=== PATIENT | female | born 1940 | race African-American/Black ===

== ENCOUNTER 2017-03-24 10:09 | Inpatient (IN) | payer MEDICARE ==
[2017-03-24 11:13] LABS: Hematocrit 35.6 % (30.3-42.9); Hemoglobin 11.8 gm/dl (10.1-14.3); Mean Corpuscular HGB Conc 33 % (30-34); Mean Corpuscular Hemoglobin 36 pg (28-32); Mean Corpuscular Volume 108 fl (79-97); Red Blood Count 3.31 M/mm3 (3.65-5.03); Red Cell Distribution Width 15.3 % (13.2-15.2)
[2017-03-24 11:14] LABS: Albumin 4.1 g/dL (3.9-5); Albumin/Globulin Ratio 1.4 %; Bilirubin,Total 0.3 mg/dL (0.1-1.2); Calcium 8.7 mg/dL (8.4-10.2); Chloride 94.5 mmol/L (98-107); Magnesium 2.3 mg/dL (1.7-2.3); Potassium 4.2 mmol/L (3.6-5.0); Total Protein 7.1 g/dL (6.3-8.2)
[2017-03-24 11:17] LABS: Platelet Count 62 K/mm3 (140-440)
[2017-03-24 12:23] LABS: Anisocytosis 1+; Basophils % (Manual) 0 % (0.0-1.8); Blastocytes % (Manual) 0 %; Diff Status Complete; Eosinophils % (Manual) 0 % (0.0-4.3); Ovalocytes Few; Platelet Estimate Consistent w Auto; Tear Drop Cells Few
[2017-03-24] MEDS ORDERED: NACL 0.9% 1000 ML 1,000 ML IV ONE (12:41)
--- NOTE | 2017-03-24 12:54 | XRay Report ---
AP CHEST: HISTORY: Difficulty in breathing AP view of the chest demonstrates a normal mediastinal and cardiac contour with clear lungs and normal bony and soft tissue structures. IMPRESSION: Unremarkable AP chest.
[2017-03-24] MEDS ORDERED: ROCEPHIN/NS 1 GM/50 ML 1 GM/50 ML BAG IV ONE (12:57)
[2017-03-24 13:02] LABS: Urine Drugs of Abuse Note Disclamer
[2017-03-24 13:27] LABS: Bacteria,Urine 1+ /HPF (Negative); Bilirubin,Urine NEG (Negative); Blood,Urine NEG (Negative); Ketones,Urine NEG (Negative); Leukocyte Esterase,Urine NEG (Negative); Mucus,Urine FEW /HPF; Nitrite,Urine NEG (Negative); Urobilinogen,Urine < 2.0 mg/dL (<2.0)
[2017-03-24] MEDS ORDERED: cefTRIAXone 1 GM in NACL 0.9% 20 ML IV ONE (13:30)
[2017-03-24 13:33] LABS: INR 0.89 (0.87-1.13)
[2017-03-24 13:34] LABS: Partial Thromboplastin Time 29.6 Sec. (24.2-36.6)
[2017-03-24 13:38] LABS: Alanine Aminotransferase 18 units/L (7-56); Albumin 3.9 g/dL (3.9-5); Albumin/Globulin Ratio 1.2 %; Alkaline Phosphatase 72 units/L (35-129); Creatine Kinase 71 units/L (30-135); Total Protein 7.1 g/dL (6.3-8.2)
[2017-03-24 13:44] LABS: Bilirubin,Direct < 0.2 mg/dL (0-0.2)
--- NOTE | 2017-03-24 14:18 | Cat Scan Report ---
CT HEAD WITHOUT CONTRAST: HISTORY: Altered mental status, thrombocytopenia. TECHNIQUE: Sequential 2.5mm CT images. COMPARISON: 12/01/14. FINDINGS: Cerebral Parenchyma: Within normal limits. Cerebellum: Within normal limits. Brainstem: Within normal limits. Ventricles: Normal. Sella: Normal. Extra-axial spaces: Normal. Basal Cisterns: Normal. Intracranial Hemorrhage: None. Midline Shift: None. Calvarium: Normal. Sinuses: Normal. Mastoid Air Cells: Normal. Visualized Orbits: Normal. IMPRESSION: Cranial CT scan within normal limits.
--- NOTE | 2017-03-24 18:57 | Emergency Department Report ---
ED General Adult HPI - General Chief complaint: Upper Respiratory Infection Stated complaint: SICK CALL Time Seen by Provider: 03/24/17 12:05 Source: EMS Mode of arrival: Stretcher Limitations: Language Barrier - History of Present Illness Initial comments: Patient herself is not able to provide any historical information. She is attended by her granddaughter who is not a great historian either. The granddaughter states that the patient was "at work" today when she started feeling illness. She had a plethora of symptoms to include headache chest pain weakness some breathing difficulty cough. More or less her review of systems is positive except for vomiting and abdominal pain. She did not complain of any urinary symptoms either when the daughter was translating for me. However her history is very vague. Granddaughter tells me she takes Motrin only. She does not see a medical physician. She was here a year or 2 ago and I see that her CBC shows a pancytopenia although not as severe as today. -: hour(s) Quality: other (not complaining of any pain on arrival) - Related Data Previous Rx's Medication Instructions Recorded Last Taken Type Sulfamethoxazole/Trimethoprim 1 each PO BID #14 tablet 12/01/14 Unknown Rx [Bactrim DS TAB] Allergies Allergy/AdvReac Type Severity Reaction Status Date / Time No Known Allergies Allergy Unverified 12/01/14 14:40 ED Review of Systems ROS: Stated complaint: SICK CALL Other details as noted in HPI Comment: Unobtainable due to pts medical conditions ED Past Medical Hx - Past Medical History Previous Medical History?: No - Surgical History Past Surgical History?: No - Social History Smoking Status: Unknown if ever smoked Substance Use Type: None - Medications Home Medications: Home Medications Medication Instructions Recorded Confirmed Last Taken Type Sulfamethoxazole/Trimethoprim 1 each PO BID #14 tablet 12/01/14 Unknown Rx [Bactrim DS TAB] ED Physical Exam - General Limitations: Language Barrier General appearance: in no apparent distress, lethargic - Head Head exam: Present: atraumatic, normocephalic - Eye Eye exam: Present: normal appearance, PERRL, EOMI. Absent: scleral icterus - ENT ENT exam: Present: mucous membranes dry - Neck Neck exam: Present: normal inspection. Absent: tenderness, meningismus - Respiratory Respiratory exam: Present: normal lung sounds bilaterally. Absent: respiratory distress - Cardiovascular Cardiovascular Exam: Present: regular rate, normal rhythm. Absent: systolic murmur, diastolic murmur, rubs, gallop - GI/Abdominal GI/Abdominal exam: Present: soft, normal bowel sounds. Absent: distended, tenderness, guarding, rebound, rigid - Extremities Exam Extremities exam: Present: normal inspection - Back Exam Back exam: Present: normal inspection - Neurological Exam Neurological exam: Present: altered (lethargic), CN II-XII intact. Absent: motor sensory deficit - Psychiatric Psychiatric exam: Present: normal mood, flat affect - Skin Skin exam: Present: warm, dry, intact, normal color. Absent: rash ED Course Vital Signs 03/24/17 03/24/17 10:12 12:06 Temperature 97.9 F Pulse Rate 62 Respiratory 18 20 Rate Blood Pressure 112/61 O2 Sat by Pulse 100 100 Oximetry - Reevaluation(s) Reevaluation #1: Patient was given IV fluids. My initial antibiotic choice was ceftriaxone. It looks like her urinalysis does have slight pyuria and bacteriuria. I would be uncertain if this is a source infection however. Further antibiotic coverage per hospitalist staff. The patient has been admitted. 03/24/17 19:01 ED Medical Decision Making - Lab Data Result diagrams: 03/24/17 10:59 03/24/17 10:36 Laboratory Results - last 24 hr 03/24/17 03/24/17 03/24/17 10:36 10:36 10:36 WBC RBC Hgb Hct MCV MCH MCHC RDW Plt Count Add Manual Diff Total Counted Seg Neuts % (Manual) Band Neutrophils % Lymphocytes % (Manual) Reactive Lymphs % (Man) Monocytes % (Manual) Eosinophils % (Manual) Basophils % (Manual) Metamyelocytes % Myelocytes % Promyelocytes % Blast Cells % Nucleated RBC % Seg Neutrophils # Man Band Neutrophils # Lymphocytes # (Manual) Abs React Lymphs (Man) Monocytes # (Manual) Eosinophils # (Manual) Basophils # (Manual) Metamyelocytes # Myelocytes # Promyelocytes # Blast Cells # WBC Morphology Hypersegmented Neuts Hyposegmented Neuts Hypogranular Neuts Smudge Cells Toxic Granulation Toxic Vacuolation Dohle Bodies Pelger-Huet Anomaly Gurpreet Rods Platelet Estimate Clumped Platelets Plt Clumps, EDTA Large Platelets Giant Platelets Platelet Satelliting Plt Morphology Comment RBC Morphology Dimorphic RBCs Polychromasia Hypochromasia Poikilocytosis Anisocytosis Microcytosis Macrocytosis Spherocytes Pappenheimer Bodies Sickle Cells Target Cells Tear Drop Cells Ovalocytes Helmet Cells [place] Bodies [place] Rings [place] Cells Bite Cells Crenated Cell Elliptocytes Acanthocytes (Spur) Rouleaux Hemoglobin C Crystals Schistocytes Malaria parasites Moses Bodies Hem Pathologist Commnt PT INR APTT Sodium 134 L Potassium 4.2 Chloride 94.5 L Carbon Dioxide 24 Anion Gap 20 BUN 32 H Creatinine 1.3 H Estimated GFR 40 BUN/Creatinine Ratio 25 Glucose 163 H Lactic Acid 1.20 Calcium 8.7 Magnesium 2.30 Total Bilirubin 0.30 Direct Bilirubin AST 36 ALT 18 Alkaline Phosphatase 71 Ammonia Total Creatine Kinase CK-MB (CK-2) CK-MB (CK-2) Rel Index Troponin T NT-Pro-B Natriuret Pep Total Protein 7.1 Albumin 4.1 Albumin/Globulin Ratio 1.4 TSH 0.787 Urine Color Urine Turbidity Urine pH Ur Specific [place] Urine Protein Urine Glucose (UA) Urine Ketones Urine Blood Urine Nitrite Urine Bilirubin Urine Urobilinogen Ur Leukocyte Esterase Urine WBC (Auto) Urine RBC (Auto) U Epithel Cells (Auto) Urine Bacteria (Auto) Urine Mucus Salicylates Urine Opiates Screen Urine Methadone Screen Acetaminophen Ur Barbiturates Screen Ur Phencyclidine Scrn Ur Amphetamines Screen U Benzodiazepines Scrn Urine Cocaine Screen U Marijuana (THC) Screen Drugs of Abuse Note Plasma/Serum Alcohol Blood Type Antibody Screen 03/24/17 03/24/17 03/24/17 10:36 10:36 10:36 WBC RBC Hgb Hct MCV MCH MCHC RDW Plt Count Add Manual Diff Total Counted Seg Neuts % (Manual) Band Neutrophils % Lymphocytes % (Manual) Reactive Lymphs % (Man) Monocytes % (Manual) Eosinophils % (Manual) Basophils % (Manual) Metamyelocytes % Myelocytes % Promyelocytes % Blast Cells % Nucleated RBC % Seg Neutrophils # Man Band Neutrophils # Lymphocytes # (Manual) Abs React Lymphs (Man) Monocytes # (Manual) Eosinophils # (Manual) Basophils # (Manual) Metamyelocytes # Myelocytes # Promyelocytes # Blast Cells # WBC Morphology Hypersegmented Neuts Hyposegmented Neuts Hypogranular Neuts Smudge Cells Toxic Granulation Toxic Vacuolation Dohle Bodies Pelger-Huet Anomaly Gurpreet Rods Platelet Estimate Clumped Platelets Plt Clumps, EDTA Large Platelets Giant Platelets Platelet Satelliting Plt Morphology Comment RBC Morphology Dimorphic RBCs Polychromasia Hypochromasia Poikilocytosis Anisocytosis Microcytosis Macrocytosis Spherocytes Pappenheimer Bodies Sickle Cells Target Cells Tear Drop Cells Ovalocytes Helmet Cells [place] Bodies [place] Rings Mauricio Cells Bite Cells Crenated Cell Elliptocytes Acanthocytes (Spur) Rouleaux Hemoglobin C Crystals Schistocytes Malaria parasites Moses Bodies Hem Pathologist Commnt PT INR APTT Sodium Potassium Chloride Carbon Dioxide Anion Gap BUN Creatinine Estimated GFR BUN/Creatinine Ratio Glucose Lactic Acid Calcium Magnesium Total Bilirubin Direct Bilirubin AST ALT Alkaline Phosphatase Ammonia Total Creatine Kinase CK-MB (CK-2) CK-MB (CK-2) Rel Index Troponin T NT-Pro-B Natriuret Pep Total Protein Albumin Albumin/Globulin Ratio TSH Urine Color Urine Turbidity Urine pH Ur Specific [place] Urine Protein Urine Glucose (UA) Urine Ketones Urine Blood Urine Nitrite Urine Bilirubin Urine Urobilinogen Ur Leukocyte Esterase Urine WBC (Auto) Urine RBC (Auto) U Epithel Cells (Auto) Urine Bacteria (Auto) Urine Mucus Salicylates 1.5 L Urine Opiates Screen Urine Methadone Screen Acetaminophen < 15.0 Ur Barbiturates Screen Ur Phencyclidine Scrn Ur Amphetamines Screen U Benzodiazepines Scrn Urine Cocaine Screen U Marijuana (THC) Screen Drugs of Abuse Note Plasma/Serum Alcohol < 0.01 Blood Type Antibody Screen 03/24/17 03/24/17 03/24/17 10:59 12:50 12:50 WBC 2.0 L RBC 3.31 L Hgb 11.8 Hct 35.6 MCV 108 H MCH 36 H MCHC 33 RDW 15.3 H Plt Count 62 L Add Manual Diff Complete Total Counted 100 Seg Neuts % (Manual) 52.0 Band Neutrophils % 17.0 Lymphocytes % (Manual) 22.0 Reactive Lymphs % (Man) 5.0 Monocytes % (Manual) 4.0 Eosinophils % (Manual) 0 Basophils % (Manual) 0 Metamyelocytes % 0 Myelocytes % 0 Promyelocytes % 0 Blast Cells % 0 Nucleated RBC % Not Reportable Seg Neutrophils # Man 1.0 L Band Neutrophils # 0.3 Lymphocytes # (Manual) 0.4 L Abs React Lymphs (Man) 0.1 Monocytes # (Manual) 0.1 Eosinophils # (Manual) 0.0 Basophils # (Manual) 0.0 Metamyelocytes # 0.0 Myelocytes # 0.0 Promyelocytes # 0.0 Blast Cells # 0.0 WBC Morphology Not Reportable Hypersegmented Neuts Not Reportable Hyposegmented Neuts Not Reportable Hypogranular Neuts Not Reportable Smudge Cells Not Reportable Toxic Granulation Not Reportable Toxic Vacuolation Not Reportable Dohle Bodies Not Reportable Pelger-Huet Anomaly Not Reportable Gurpreet Rods Not Reportable Platelet Estimate Consistent w auto Clumped Platelets Not Reportable Plt Clumps, EDTA Not Reportable Large Platelets Not Reportable Giant Platelets Not Reportable Platelet Satelliting Not Reportable Plt Morphology Comment Not Reportable RBC Morphology Not Reportable Dimorphic RBCs Not Reportable Polychromasia Not Reportable Hypochromasia Not Reportable Poikilocytosis Not Reportable Anisocytosis 1+ Microcytosis Not Reportable Macrocytosis Not Reportable Spherocytes Not Reportable Pappenheimer Bodies Not Reportable Sickle Cells Not Reportable Target Cells Not Reportable Tear Drop Cells Few Ovalocytes Few Helmet Cells Not Reportable [place] Bodies Not Reportable [place] Rings Not Reportable [place] Cells Not Reportable Bite Cells Not Reportable Crenated Cell Not Reportable Elliptocytes Not Reportable Acanthocytes (Spur) Not Reportable Rouleaux Not Reportable Hemoglobin C Crystals Not Reportable Schistocytes Not Reportable Malaria parasites Not Reportable Moses Bodies Not Reportable Hem Pathologist Commnt No PT 12.5 INR 0.89 APTT 29.6 Sodium Potassium Chloride Carbon Dioxide Anion Gap BUN Creatinine Estimated GFR BUN/Creatinine Ratio Glucose Lactic Acid Calcium Magnesium 2.40 H Total Bilirubin 0.20 Direct Bilirubin < 0.2 AST 32 ALT 18 Alkaline Phosphatase 72 Ammonia Total Creatine Kinase 71 CK-MB (CK-2) 2.0 CK-MB (CK-2) Rel Index 2.8 Troponin T < 0.010 NT-Pro-B Natriuret Pep 47.77 Total Protein 7.1 Albumin 3.9 Albumin/Globulin Ratio 1.2 TSH Urine Color Urine Turbidity Urine pH Ur Specific [place] Urine Protein Urine Glucose (UA) Urine Ketones Urine Blood Urine Nitrite Urine Bilirubin Urine Urobilinogen Ur Leukocyte Esterase Urine WBC (Auto) Urine RBC (Auto) U Epithel Cells (Auto) Urine Bacteria (Auto) Urine Mucus Salicylates Urine Opiates Screen Urine Methadone Screen Acetaminophen Ur Barbiturates Screen Ur Phencyclidine Scrn Ur Amphetamines Screen U Benzodiazepines Scrn Urine Cocaine Screen U Marijuana (THC) Screen Drugs of Abuse Note Plasma/Serum Alcohol Blood Type Antibody Screen 03/24/17 03/24/17 03/24/17 12:50 12:50 12:50 WBC RBC Hgb Hct MCV MCH MCHC RDW Plt Count Add Manual Diff Total Counted Seg Neuts % (Manual) Band Neutrophils % Lymphocytes % (Manual) Reactive Lymphs % (Man) Monocytes % (Manual) Eosinophils % (Manual) Basophils % (Manual) Metamyelocytes % Myelocytes % Promyelocytes % Blast Cells % Nucleated RBC % Seg Neutrophils # Man Band Neutrophils # Lymphocytes # (Manual) Abs React Lymphs (Man) Monocytes # (Manual) Eosinophils # (Manual) Basophils # (Manual) Metamyelocytes # Myelocytes # Promyelocytes # Blast Cells # WBC Morphology Hypersegmented Neuts Hyposegmented Neuts Hypogranular Neuts Smudge Cells Toxic Granulation Toxic Vacuolation Dohle Bodies Pelger-Huet Anomaly Gurpreet Rods Platelet Estimate Clumped Platelets Plt Clumps, EDTA Large Platelets Giant Platelets Platelet Satelliting Plt Morphology Comment RBC Morphology Dimorphic RBCs Polychromasia Hypochromasia Poikilocytosis Anisocytosis Microcytosis Macrocytosis Spherocytes Pappenheimer Bodies Sickle Cells Target Cells Tear Drop Cells Ovalocytes Helmet Cells [place] Bodies [place] Rings Mauricio Cells Bite Cells Crenated Cell Elliptocytes Acanthocytes (Spur) Rouleaux Hemoglobin C Crystals Schistocytes Malaria parasites Moses Bodies Hem Pathologist Commnt PT INR APTT Sodium Potassium Chloride Carbon Dioxide Anion Gap BUN Creatinine Estimated GFR BUN/Creatinine Ratio Glucose Lactic Acid 1.60 Calcium Magnesium Total Bilirubin Direct Bilirubin AST ALT Alkaline Phosphatase Ammonia 32.0 Total Creatine Kinase CK-MB (CK-2) CK-MB (CK-2) Rel Index Troponin T NT-Pro-B Natriuret Pep Total Protein Albumin Albumin/Globulin Ratio TSH Urine Color Urine Turbidity Urine pH Ur Specific [place] Urine Protein Urine Glucose (UA) Urine Ketones Urine Blood Urine Nitrite Urine Bilirubin Urine Urobilinogen Ur Leukocyte Esterase Urine WBC (Auto) Urine RBC (Auto) U Epithel Cells (Auto) Urine Bacteria (Auto) Urine Mucus Salicylates Urine Opiates Screen Urine Methadone Screen Acetaminophen Ur Barbiturates Screen Ur Phencyclidine Scrn Ur Amphetamines Screen U Benzodiazepines Scrn Urine Cocaine Screen U Marijuana (THC) Screen Drugs of Abuse Note Plasma/Serum Alcohol Blood Type B POSITIVE Antibody Screen Negative 03/24/17 03/24/17 12:52 12:52 WBC RBC Hgb Hct MCV MCH MCHC RDW Plt Count Add Manual Diff Total Counted Seg Neuts % (Manual) Band Neutrophils % Lymphocytes % (Manual) Reactive Lymphs % (Man) Monocytes % (Manual) Eosinophils % (Manual) Basophils % (Manual) Metamyelocytes % Myelocytes % Promyelocytes % Blast Cells % Nucleated RBC % Seg Neutrophils # Man Band Neutrophils # Lymphocytes # (Manual) Abs React Lymphs (Man) Monocytes # (Manual) Eosinophils # (Manual) Basophils # (Manual) Metamyelocytes # Myelocytes # Promyelocytes # Blast Cells # WBC Morphology Hypersegmented Neuts Hyposegmented Neuts Hypogranular Neuts Smudge Cells Toxic Granulation Toxic Vacuolation Dohle Bodies Pelger-Huet Anomaly Gurpreet Rods Platelet Estimate Clumped Platelets Plt Clumps, EDTA Large Platelets Giant Platelets Platelet Satelliting Plt Morphology Comment RBC Morphology Dimorphic RBCs Polychromasia Hypochromasia Poikilocytosis Anisocytosis Microcytosis Macrocytosis Spherocytes Pappenheimer Bodies Sickle Cells Target Cells Tear Drop Cells Ovalocytes Helmet Cells [place] Bodies [place] Rings Mauricio Cells Bite Cells Crenated Cell Elliptocytes Acanthocytes (Spur) Rouleaux Hemoglobin C Crystals Schistocytes Malaria parasites Moses Bodies Hem Pathologist Commnt PT INR APTT Sodium Potassium Chloride Carbon Dioxide Anion Gap BUN Creatinine Estimated GFR BUN/Creatinine Ratio Glucose Lactic Acid Calcium Magnesium Total Bilirubin Direct Bilirubin AST ALT Alkaline Phosphatase Ammonia Total Creatine Kinase CK-MB (CK-2) CK-MB (CK-2) Rel Index Troponin T NT-Pro-B Natriuret Pep Total Protein Albumin Albumin/Globulin Ratio TSH Urine Color [place] Urine Turbidity Clear Urine pH 5.0 Ur Specific [place] 1.027 Urine Protein 30 mg/dl Urine Glucose (UA) Neg Urine Ketones Neg Urine Blood Neg Urine Nitrite Neg Urine Bilirubin Neg Urine Urobilinogen < 2.0 Ur Leukocyte Esterase Neg Urine WBC (Auto) 7.0 H Urine RBC (Auto) 4.0 U Epithel Cells (Auto) 2.0 Urine Bacteria (Auto) 1+ Urine Mucus Few Salicylates Urine Opiates Screen Presumptive negative Urine Methadone Screen Presumptive negative Acetaminophen Ur Barbiturates Screen Presumptive negative Ur Phencyclidine Scrn Presumptive negative Ur Amphetamines Screen Presumptive negative U Benzodiazepines Scrn Presumptive negative Urine Cocaine Screen Presumptive negative U Marijuana (THC) Screen Presumptive negative Drugs of Abuse Note Disclamer Plasma/Serum Alcohol Blood Type Antibody Screen - EKG Data -: EKG Interpreted by Me EKG shows normal: sinus rhythm, axis, intervals, QRS complexes, ST-T waves Rate: bradycardia - EKG Data Interpretation: no acute changes, other (EKG in the field and here in the emergency department does not demonstrate any evidence of acute ischemia) Critical care attestation.: If time is entered above; I have spent that time in minutes in the direct care of this critically ill patient, excluding procedure time. ED Disposition Clinical Impression: Prerenal azotemia, Volume depletion, Pancytopenia, Thrombocytopenia, Bradycardia Neutropenia Qualifiers: Neutropenia type: unspecified Qualified Code(s): D70.9 - Neutropenia, unspecified Altered mental status Qualifiers: Altered mental status type: somnolence Qualified Code(s): R40.0 - Somnolence Disposition: DC-09 OP ADMIT IP TO THIS HOSP Is pt being admited?: Yes Does the pt Need Aspirin: No (contraindicated secondary to thrombocytopenia) Condition: Stable Referrals: PRIMARY CARE, [Primary Care Provider] - 3-5 Days Time of Disposition: 14:00
--- NOTE | 2017-03-24 19:49 | History and Physical Report ---
History of Present Illness Chief complaint: She feels sick History of present illness: 77 YO Female with No PMH presents to ED for evaluation. Pt unable to provide detailed history. Pt granddaughter at bedside who provides limited history through translation. per granddaughter, the patient was in her usual state of health, and after she arrived at work she began to feel "sick". Pt experienced a sudden onset of generalized weakness, headache, as well as chest pain. Pain was substernal, nonradiating, associated with shortness of breath and coughing, nonradiating, not worsened with exertion or relieved with rest. No reports of fever, chills, syncope, trauma, BRBPR, recent ill contacts, falls , unintentional weight loss, night sweats, prolonged travel/immobility, individual/family history of DVT/PE, skin rash, hematuria, or productive cough. Pt seen and evaluated inED and found to have symptoms consistent with ACS. Past History Past Medical History: No medical history, other (reviewed) Past Surgical History: No surgical history, Other (reviewed) Social history: single, lives with family. denies: smoking, alcohol abuse, prescription drug abuse Family history: no significant family history (reviewed) Medications and Allergies Allergies Allergy/AdvReac Type Severity Reaction Status Date / Time No Known Allergies Allergy Unverified 12/01/14 14:40 Home Medications Medication Instructions Recorded Confirmed Last Taken Type No Known Home Medications [No 03/24/17 03/24/17 Unknown History Reported Home Medications] Active Meds: Active Medications Sodium Chloride (Nacl 0.9% 1000 Ml) 1,000 mls @ 125 mls/hr IV ONCE ONE Stop: 03/24/17 20:40 Last Admin: 03/24/17 14:10 Dose: 125 mls/hr Review of Systems ROS unobtainable: due to mental status Exam - Constitutional Vitals: Temp Pulse Resp BP Pulse Ox 97.9 F 62 14 123/57 99 03/24/17 10:12 03/24/17 18:46 03/24/17 18:46 03/24/17 16:30 03/24/17 18:46 General appearance: Present: mild distress, cachectic - EENT Eyes: Present: PERRL ENT: hearing intact, clear oral mucosa - Neck Neck: Present: supple, normal ROM - Respiratory Respiratory effort: normal Respiratory: bilateral: CTA - Cardiovascular Heart Sounds: Present: S1 & S2. Absent: rub, click - Extremities Extremities: pulses symmetrical, No edema Peripheral Pulses: within normal limits - Abdominal General gastrointestinal: Present: soft, non-tender, non-distended, normal bowel sounds Female genitourinary: Present: normal - Integumentary Integumentary: Present: clear, warm, dry - Musculoskeletal Musculoskeletal: gait normal, strength equal bilaterally - Psychiatric Psychiatric: no intact judgment & insight - Neurologic Neurologic: CNII-XII intact, moves all extremities Results - Labs CBC & Chem 7: 03/24/17 20:42 03/24/17 20:42 Labs: Abnormal lab results 03/24/17 03/24/17 03/24/17 Range/Units 10:36 10:36 10:59 WBC 2.0 L (4.5-11.0) K/mm3 RBC 3.31 L (3.65-5.03) M/mm3 MCV 108 H (79-97) fl MCH 36 H (28-32) pg RDW 15.3 H (13.2-15.2) % Plt Count 62 L (140-440) K/mm3 Seg Neutrophils # Man 1.0 L (1.8-7.7) K/mm3 Lymphocytes # (Manual) 0.4 L (1.2-5.4) K/mm3 Sodium 134 L (137-145) mmol/L Chloride 94.5 L (98-107) mmol/L BUN 32 H (7-17) mg/dL Creatinine 1.3 H (0.7-1.2) mg/dL Glucose 163 H (65-100) mg/dL Magnesium (1.7-2.3) mg/dL Urine WBC (Auto) (0.0-6.0) /HPF Salicylates 1.5 L (2.8-20.0) mg/dL 03/24/17 03/24/17 Range/Units 12:50 12:52 WBC (4.5-11.0) K/mm3 RBC (3.65-5.03) M/mm3 MCV (79-97) fl MCH (28-32) pg RDW (13.2-15.2) % Plt Count (140-440) K/mm3 Seg Neutrophils # Man (1.8-7.7) K/mm3 Lymphocytes # (Manual) (1.2-5.4) K/mm3 Sodium (137-145) mmol/L Chloride (98-107) mmol/L BUN (7-17) mg/dL Creatinine (0.7-1.2) mg/dL Glucose (65-100) mg/dL Magnesium 2.40 H (1.7-2.3) mg/dL Urine WBC (Auto) 7.0 H (0.0-6.0) /HPF Salicylates (2.8-20.0) mg/dL Assessment and Plan - Patient Problems (1) ACS (acute coronary syndrome) Current Visit: Yes Status: Acute Plan to address problem: Chest Pain protocol: Serial cardiac enzymes, ekg, telemetry, cardiology consulted, echo, stress test, supplemental oxygen, morphine, nitro tabs, aspirin , (2) Hyponatremia syndrome Current Visit: Yes Status: Acute Plan to address problem: IVF resuscitation, repeat bmp (3) ARF (acute renal failure) Current Visit: Yes Status: Acute Plan to address problem: Monitor uop q shift, IVF resuscitation, repeat bmp to reevaluate serum creatnine (4) DVT prophylaxis Current Visit: Yes Status: Acute
[2017-03-24] MEDS ORDERED: BABY ASPIRIN PO STA (20:31)
[2017-03-24] MEDS ORDERED: PROVENTIL IH PRN (20:31)
[2017-03-24] MEDS ORDERED: SODIUM CHLORIDE FLUSH SYRINGE 10 ML IV PRN (20:31)
[2017-03-24] MEDS ORDERED: MORPHINE IV PRN (20:31)
[2017-03-24] MEDS ORDERED: NITROSTAT SL PRN (20:31)
[2017-03-24] MEDS ORDERED: ZOFRAN IV PRN (20:31)
[2017-03-24] MEDS: TYLENOL PO PRN (20:50)
[2017-03-24 20:57] LABS: Hematocrit 31.9 % (30.3-42.9); Mean Corpuscular HGB Conc 34 % (30-34); Mean Corpuscular Hemoglobin 36 pg (28-32); Mean Corpuscular Volume 106 fl (79-97); Red Blood Count 3.01 M/mm3 (3.65-5.03)
[2017-03-24 21:00] LABS: Platelet Count 60 K/mm3 (140-440); White Blood Count 1.6 K/mm3 (4.5-11.0)
[2017-03-24 21:20] LABS: Anion Gap 19 mmol/L; BUN/Creatinine Ratio 28; Blood Urea Nitrogen 22 mg/dL (7-17); Calcium 7.9 mg/dL (8.4-10.2); Carbon Dioxide 23 mmol/L (22-30); Chloride 104.5 mmol/L (98-107); Cholesterol 150 mg/dL (50-199); Glucose 95 mg/dL (65-100); HDL Cholesterol 63 mg/dL (40-59); LDL Cholesterol,Direct 67 mg/dL (50-130); Sodium 142 mmol/L (137-145); Triglycerides 104 mg/dL (2-149)
[2017-03-24 21:42] LABS: Basophils % (Manual) 0 % (0.0-1.8); Blastocytes % (Manual) 0 %; Eosinophils % (Manual) 0 % (0.0-4.3)
[2017-03-24 21:43] LABS: Anisocytosis 1+; Ovalocytes Few; Platelet Estimate Appears Decreased; Tear Drop Cells Few
[2017-03-24 21:44] LABS: Diff Status Complete
[2017-03-24] MEDS ORDERED: ATIVAN ONE (22:22)
[2017-03-24] MEDS ORDERED: ATIVAN IV ONE (22:23)
[2017-03-24] MEDS ORDERED: KEPPRA 1,000 MG/NS 0.75% 100ML 1,000 MG/100 ML BAG IV ONE (22:29)
--- NOTE | 2017-03-24 22:32 | Event Note ---
Patient had seizure episode, witnessed by family. Gave Ativan iv. Start keppra iv, fluids. CT head done today was unremarkable.
[2017-03-25] MEDS ORDERED: NACL 0.9% 1000 ML 1,000 ML IV ONE (04:14)
[2017-03-25] MEDS ORDERED: D50W (25GM) Vial IV ONE (05:00)
[2017-03-25] MEDS: D5/0.45NS 1,000 ML IV SCH (06:52)
--- NOTE | 2017-03-25 10:00 | Consultation ---
History of Present Illness Consult date: 03/25/17 Consult reason: other History of present illness: 77 YO woman with unclear medical history who presented to ED with syncope, generalized fatigue, malaise, and "generally not feeling well." She is not able to provide history and history was obtained from her family and medical records. She normally works in a warehouse and had been at work yesterday when she started feeling unwell with generalized weakness, headache, and subsequently had brief episode of syncope. She did not have any palpitations, chest pain or unusual dyspnea. OK has been ruled out with serial negative enzymes. She was noted to have severe pancytopenia and she had witnessed seizure overnight. She has no prior h /o seizures and continues to have ongoing headaches. ECG reveals NSR and is otherwise unremarkable. Past History Past Medical History: No medical history, other (reviewed) Past Surgical History: No surgical history, Other (reviewed) Social history: single, lives with family. denies: smoking, alcohol abuse, prescription drug abuse Family history: no significant family history (reviewed) Medications and Allergies Allergies Allergy/AdvReac Type Severity Reaction Status Date / Time No Known Allergies Allergy Unverified 12/01/14 14:40 Home Medications Medication Instructions Recorded Confirmed Last Taken Type No Known Home Medications [No 03/24/17 03/24/17 Unknown History Reported Home Medications] Active Meds: Active Medications Acetaminophen (Tylenol) 650 mg PO Q4H PRN PRN Reason: Pain MILD(1-3)/Fever >100.5/HASSAN Last Admin: 03/24/17 20:50 Dose: 650 mg Albuterol (Proventil) 2.5 mg IH Q4HRT PRN PRN Reason: Shortness Of Breath Dextrose/Sodium Chloride (D5/0.45ns) 1,000 mls @ 75 mls/hr IV DIRECT MARK Last Admin: 03/25/17 06:52 Dose: 75 mls/hr Influenza Virus Vaccine Quadrival (Fluarix Quad [id number](36 Mos+) 0.5 ml IM .ONCE ONE Stop: 03/25/17 12:01 Morphine Sulfate (Morphine) 2 mg IV Q4H PRN PRN Reason: Pain, Moderate (4-6) Nitroglycerin (Nitrostat) 0.4 mg SL Q5M PRN PRN Reason: Chest Pain Ondansetron HCl (Zofran) 4 mg IV Q8H PRN PRN Reason: N/V unrelieved by Reglan Sodium Chloride (Sodium Chloride Flush Syringe 10 Ml) 10 ml IV PRN PRN PRN Reason: LINE FLUSH Review of Systems All systems: negative (per hpi - otherwise unable to obtain) Physical Examination Vital Signs Temp Pulse Resp BP Pulse Ox 97.9 F 62 18 112/61 100 03/24/17 10:12 03/24/17 10:12 03/24/17 10:12 03/24/17 10:12 03/24/17 10:12 Results 03/24/17 20:42 03/24/17 20:42 Cardiac Enzymes 03/24/17 03/24/17 Range/Units 10:36 12:50 AST 36 32 (5-40) units/L CK-MB (CK-2) 2.0 (0.0-4.0) ng/mL Coagulation 03/24/17 Range/Units 12:50 PT 12.5 (12.2-14.9) Sec. INR 0.89 (0.87-1.13) APTT 29.6 (24.2-36.6) Sec. Lipids 03/24/17 Range/Units 20:42 Triglycerides 104 (2-149) mg/dL Cholesterol 150 (50-199) mg/dL HDL Cholesterol 63 H (40-59) mg/dL Cholesterol/HDL Ratio 2.38 % CBC 03/24/17 03/24/17 Range/Units 10:59 20:42 WBC 2.0 L 1.6 L* (4.5-11.0) K/mm3 RBC 3.31 L 3.01 L (3.65-5.03) M/mm3 Hgb 11.8 11.0 (10.1-14.3) gm/dl Hct 35.6 31.9 (30.3-42.9) % Plt Count 62 L 60 L (140-440) K/mm3 Comprehensive Metabolic Panel 03/24/17 03/24/17 03/24/17 Range/Units 10:36 12:50 20:42 Sodium 134 L 142 D (137-145) mmol/L Potassium 4.2 4.0 (3.6-5.0) mmol/L Chloride 94.5 L 104.5 (98-107) mmol/L Carbon Dioxide 24 23 (22-30) mmol/L BUN 32 H 22 H (7-17) mg/dL Creatinine 1.3 H 0.8 (0.7-1.2) mg/dL Glucose 163 H 95 (65-100) mg/dL Calcium 8.7 7.9 L (8.4-10.2) mg/dL Direct Bilirubin < 0.2 (0-0.2) mg/dL AST 36 32 (5-40) units/L ALT 18 18 (7-56) units/L Alkaline Phosphatase 71 72 (35-129) units/L Total Protein 7.1 7.1 (6.3-8.2) g/dL Albumin 4.1 3.9 (3.9-5) g/dL Assessment and Plan Syncope, Generallized weakness, fatigue Witnessed Seizure Headache Pancytopenia Recommend: No utility to cardiac stress testing at this point - will cancel Neurology and Hematology evaluation Check Echocardiogram
[2017-03-25] MEDS: TYLENOL PO PRN ×2 (10:39→23:24)
--- NOTE | 2017-03-25 10:52 | Progress Note ---
Assessment and Plan Assessment and plan: --Witnessed seizure; probably new onset Seizure precautions, antiepileptic medications, neurology consultation, supportive care, EEG as needed --Acute coronary syndrome; unlikely, serial cardiac enzymes negative, EKG no acute ST changes, closely monitor --Acute renal failure; vasomotor nephropathy, resolved Gentle hydration, closely monitor renal function, avoid nephrotoxic medications --Hyponatremia; replacement therapy, closely monitor sodium levels --Neutropenia; unknown etiology, try to get a complete history from the family --Thrombocytopenia; unknown etiology, obtain medical history from the family, consult hematology as needed --Elevated D dimers; negative PE --DVT prophylaxis; no pharmacologic anticoagulation in view of thrombocytopenia Use SCDs --Full code Closely monitor the patient and adjust management as needed History Interval history: Patient seen and examined medical records reviewed Last night events noted, had a witnessed seizure, on seizure precautions No new episodes Sleeping easily awakens minimally communicative Hospitalist Physical - Constitutional Vitals: Temp Pulse Resp BP Pulse Ox 97.7 F 72 18 105/42 96 03/25/17 04:07 03/25/17 06:57 03/25/17 04:01 03/25/17 06:44 03/25/17 06:44 General appearance: Present: mild distress, cachectic, disheveled - EENT Eyes: Present: PERRL, EOM intact - Neck Neck: Present: supple, normal ROM - Respiratory Respiratory effort: normal Respiratory: bilateral: diminished, negative: rales, rhonchi, wheezing - Cardiovascular Rhythm: regular Heart Sounds: Present: S1 & S2 - Extremities Extremities: no ischemia, No edema - Abdominal General gastrointestinal: soft, non-tender, non-distended, normal bowel sounds - Integumentary Integumentary: Present: clear, warm - Psychiatric Psychiatric: other (minimally communicative) - Neurologic Neurologic: other (minimally communicative) Results - Labs CBC & Chem 7: 03/24/17 20:42 03/24/17 20:42 Labs: Laboratory Last Values WBC 1.6 K/mm3 (4.5-11.0) L* 03/24/17 20:42 RBC 3.01 M/mm3 (3.65-5.03) L 03/24/17 20:42 Hgb 11.0 gm/dl (10.1-14.3) 03/24/17 20:42 Hct 31.9 % (30.3-42.9) 03/24/17 20:42 MCV 106 fl (79-97) H 03/24/17 20:42 MCH 36 pg (28-32) H 03/24/17 20:42 MCHC 34 % (30-34) 03/24/17 20:42 RDW 15.0 % (13.2-15.2) 03/24/17 20:42 Plt Count 60 K/mm3 (140-440) L 03/24/17 20:42 Add Manual Diff Complete 03/24/17 20:42 Total Counted 100 03/24/17 20:42 Seg Neuts % (Manual) 58.0 % (40.0-70.0) 03/24/17 20:42 Band Neutrophils % 0 % 03/24/17 20:42 Lymphocytes % (Manual) 31.0 % (13.4-35.0) 03/24/17 20:42 Reactive Lymphs % (Man) 0 % 03/24/17 20:42 Monocytes % (Manual) 11.0 % (0.0-7.3) H 03/24/17 20:42 Eosinophils % (Manual) 0 % (0.0-4.3) 03/24/17 20:42 Basophils % (Manual) 0 % (0.0-1.8) 03/24/17 20:42 Metamyelocytes % 0 % 03/24/17 20:42 Myelocytes % 0 % 03/24/17 20:42 Promyelocytes % 0 % 03/24/17 20:42 Blast Cells % 0 % 03/24/17 20:42 Nucleated RBC % Not Reportable 03/24/17 20:42 Seg Neutrophils # Man 0.9 K/mm3 (1.8-7.7) L 03/24/17 20:42 Band Neutrophils # 0.0 K/mm3 03/24/17 20:42 Lymphocytes # (Manual) 0.5 K/mm3 (1.2-5.4) L 03/24/17 20:42 Abs React Lymphs (Man) 0.0 K/mm3 03/24/17 20:42 Monocytes # (Manual) 0.2 K/mm3 (0.0-0.8) 03/24/17 20:42 Eosinophils # (Manual) 0.0 K/mm3 (0.0-0.4) 03/24/17 20:42 Basophils # (Manual) 0.0 K/mm3 (0.0-0.1) 03/24/17 20:42 Metamyelocytes # 0.0 K/mm3 03/24/17 20:42 Myelocytes # 0.0 K/mm3 03/24/17 20:42 Promyelocytes # 0.0 K/mm3 03/24/17 20:42 Blast Cells # 0.0 K/mm3 03/24/17 20:42 WBC Morphology Not Reportable 03/24/17 20:42 Hypersegmented Neuts Not Reportable 03/24/17 20:42 Hyposegmented Neuts Not Reportable 03/24/17 20:42 Hypogranular Neuts Not Reportable 03/24/17 20:42 Smudge Cells Not Reportable 03/24/17 20:42 Toxic Granulation Not Reportable 03/24/17 20:42 Toxic Vacuolation Not Reportable 03/24/17 20:42 Dohle Bodies Not Reportable 03/24/17 20:42 Pelger-Huet Anomaly Not Reportable 03/24/17 20:42 Gurpreet Rods Not Reportable 03/24/17 20:42 Platelet Estimate Appears decreased 03/24/17 20:42 Clumped Platelets Not Reportable 03/24/17 20:42 Plt Clumps, EDTA Not Reportable 03/24/17 20:42 Large Platelets Not Reportable 03/24/17 20:42 Giant Platelets Not Reportable 03/24/17 20:42 Platelet Satelliting Not Reportable 03/24/17 20:42 Plt Morphology Comment Not Reportable 03/24/17 20:42 RBC Morphology Not Reportable 03/24/17 20:42 Dimorphic RBCs Not Reportable 03/24/17 20:42 Polychromasia Not Reportable 03/24/17 20:42 Hypochromasia Not Reportable 03/24/17 20:42 Poikilocytosis Not Reportable 03/24/17 20:42 Anisocytosis 1+ 03/24/17 20:42 Microcytosis Not Reportable 03/24/17 20:42 Macrocytosis Not Reportable 03/24/17 20:42 Spherocytes Not Reportable 03/24/17 20:42 Pappenheimer Bodies Not Reportable 03/24/17 20:42 Sickle Cells Not Reportable 03/24/17 20:42 Target Cells Not Reportable 03/24/17 20:42 Tear Drop Cells Few 03/24/17 20:42 Ovalocytes Few 03/24/17 20:42 Helmet Cells Not Reportable 03/24/17 20:42 [place] Bodies Not Reportable 03/24/17 20:42 [place] Rings Not Reportable 03/24/17 20:42 Mauricio Cells Not Reportable 03/24/17 20:42 Bite Cells Not Reportable 03/24/17 20:42 Crenated Cell Not Reportable 03/24/17 20:42 Elliptocytes Not Reportable 03/24/17 20:42 Acanthocytes (Spur) Not Reportable 03/24/17 20:42 Rouleaux Not Reportable 03/24/17 20:42 Hemoglobin C Crystals Not Reportable 03/24/17 20:42 Schistocytes Not Reportable 03/24/17 20:42 Malaria parasites Not Reportable 03/24/17 20:42 Moses Bodies Not Reportable 03/24/17 20:42 Hem Pathologist Commnt No 03/24/17 20:42 PT 12.5 Sec. (12.2-14.9) 03/24/17 12:50 INR 0.89 (0.87-1.13) 03/24/17 12:50 APTT 29.6 Sec. (24.2-36.6) 03/24/17 12:50 D-Dimer 422.07 ng/mlDDU (0-234) H 03/24/17 20:42 Sodium 142 mmol/L (137-145) D 03/24/17 20:42 Potassium 4.0 mmol/L (3.6-5.0) 03/24/17 20:42 Chloride 104.5 mmol/L (98-107) 03/24/17 20:42 Carbon Dioxide 23 mmol/L (22-30) 03/24/17 20:42 Anion Gap 19 mmol/L 03/24/17 20:42 BUN 22 mg/dL (7-17) H 03/24/17 20:42 Creatinine 0.8 mg/dL (0.7-1.2) 03/24/17 20:42 Estimated GFR > 60 ml/min 03/24/17 20:42 BUN/Creatinine Ratio 28 % 03/24/17 20:42 Glucose 95 mg/dL (65-100) 03/24/17 20:42 POC Glucose 144 (70-105) H 03/25/17 06:46 Lactic Acid 1.60 mmol/L (0.7-2.0) 03/24/17 12:50 Calcium 7.9 mg/dL (8.4-10.2) L 03/24/17 20:42 Magnesium 2.40 mg/dL (1.7-2.3) H 03/24/17 12:50 Total Bilirubin 0.20 mg/dL (0.1-1.2) 03/24/17 12:50 Direct Bilirubin < 0.2 mg/dL (0-0.2) 03/24/17 12:50 AST 32 units/L (5-40) 03/24/17 12:50 ALT 18 units/L (7-56) 03/24/17 12:50 Alkaline Phosphatase 72 units/L (35-129) 03/24/17 12:50 Ammonia 32.0 umol/L (25-60) 03/24/17 12:50 Total Creatine Kinase 71 units/L (30-135) 03/24/17 12:50 CK-MB (CK-2) 2.0 ng/mL (0.0-4.0) 03/24/17 12:50 CK-MB (CK-2) Rel Index 2.8 (0-4) 03/24/17 12:50 Troponin T < 0.010 ng/mL (0.00-0.029) 03/25/17 02:31 NT-Pro-B Natriuret Pep 47.77 pg/mL (0-900) 03/24/17 12:50 Total Protein 7.1 g/dL (6.3-8.2) 03/24/17 12:50 Albumin 3.9 g/dL (3.9-5) 03/24/17 12:50 Albumin/Globulin Ratio 1.2 % 03/24/17 12:50 Triglycerides 104 mg/dL (2-149) 03/24/17 20:42 Cholesterol 150 mg/dL (50-199) 03/24/17 20:42 LDL Cholesterol Direct 67 mg/dL (50-130) 03/24/17 20:42 HDL Cholesterol 63 mg/dL (40-59) H 03/24/17 20:42 Cholesterol/HDL Ratio 2.38 % 03/24/17 20:42 TSH 0.787 mlU/mL (0.270-4.200) 03/24/17 10:36 Urine Color Amanda (Yellow) 03/24/17 12:52 Urine Turbidity Clear (Clear) 03/24/17 12:52 Urine pH 5.0 (5.0-7.0) 03/24/17 12:52 Ur Specific Cyrus 1.027 (1.003-1.030) 03/24/17 12:52 Urine Protein 30 mg/dl mg/dL (Negative) 03/24/17 12:52 Urine Glucose (UA) Neg mg/dL (Negative) 03/24/17 12:52 Urine Ketones Neg mg/dL (Negative) 03/24/17 12:52 Urine Blood Neg (Negative) 03/24/17 12:52 Urine Nitrite Neg (Negative) 03/24/17 12:52 Urine Bilirubin Neg (Negative) 03/24/17 12:52 Urine Urobilinogen < 2.0 mg/dL (<2.0) 03/24/17 12:52 Ur Leukocyte Esterase Neg (Negative) 03/24/17 12:52 Urine WBC (Auto) 7.0 /HPF (0.0-6.0) H 03/24/17 12:52 Urine RBC (Auto) 4.0 /HPF (0.0-6.0) 03/24/17 12:52 U Epithel Cells (Auto) 2.0 /HPF (0-13.0) 03/24/17 12:52 Urine Bacteria (Auto) 1+ /HPF (Negative) 03/24/17 12:52 Urine Mucus Few /HPF 03/24/17 12:52 Salicylates 1.5 mg/dL (2.8-20.0) L 03/24/17 10:36 Urine Opiates Screen Presumptive negative 03/24/17 12:52 Urine Methadone Screen Presumptive negative 03/24/17 12:52 Acetaminophen < 15.0 ug/mL (10.0-30.0) 03/24/17 10:36 Ur Barbiturates Screen Presumptive negative 03/24/17 12:52 Ur Phencyclidine Scrn Presumptive negative 03/24/17 12:52 Ur Amphetamines Screen Presumptive negative 03/24/17 12:52 U Benzodiazepines Scrn Presumptive negative 03/24/17 12:52 Urine Cocaine Screen Presumptive negative 03/24/17 12:52 U Marijuana (THC) Screen Presumptive negative 03/24/17 12:52 Drugs of Abuse Note Disclamer 03/24/17 12:52 Plasma/Serum Alcohol < 0.01 gm% (0-0.07) 03/24/17 10:36 Blood Type B POSITIVE 03/24/17 12:50 Antibody Screen Negative 03/24/17 12:50
[2017-03-25] MEDS ORDERED: NACL ONE (11:01)
--- NOTE | 2017-03-25 11:52 | Cat Scan Report ---
CT ANGIO CHEST WITH CONTRAST: 03/25/17 10:49:00 CLINICAL: Chest pain and elevated d-dimers. TECHNIQUE: PE protocol with volumetric acquisition and 1.25 mm scan reconstructions after the uneventful intravenous injection of 100 cc Omnipaque 350. Consent was obtained prior to the administration of contrast. FINDINGS: Good opacification of the pulmonary arteries and no pulmonary artery thrombus identified. Normal heart and aorta. Normal lungs and mediastinum. Normal trachea and esophagus. Mild right thyroid enlargement with a benign calcification. The upper abdomen is unremarkable. The bones and soft tissues are normal. IMPRESSION: Negative study. No pulmonary embolus. No CHF or pneumonia.
[2017-03-25] MEDS ORDERED: Fluarix Quad 2017-2018(36 MOS+ IM ONE (12:00)
[2017-03-25] MEDS: ROBITUSSIN PO PRN (23:10)
--- NOTE | 2017-03-26 00:57 | Consultation ---
HISTORY OF PRESENT ILLNESS: This is a 77-year-old female that is admitted to [facility] for further evaluation of a syncopal episode. By history, her granddaughter tells me that she came in with altered mental status and was confused and passed out at her work. 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 Granddaughter could, however, not make any specific statements about her symptoms other than she started having difficulty in breathing, coughing, and then had chest pain with headaches. She did not speak Uz[place], so therefore the daughter translated. She had been taking Motrin before this. She does not see a doctor. She had a prior history of probably taking no medications except occasional [id number] Motrin. When she was assessed, she was treated with IV fluids and ceftriaxone. Urinalysis shows she had pyuria, bacteriuria, and respiratory rate was 18 and she had a platelet count of 62,000, which was thrombocytopenia. After being initially evaluated, she remained somnolent and she was thought to have had a seizure. Since admission, she is being evaluated for neutropenia and thrombocytopenia with a white blood count of 2000 with the calculated neutrophil count being about 50% indicating that she has overall neutropenia as well. PHYSICAL EXAMINATION: The patient is lethargic, complains of a headache, has full ocular movements, but the neck is supple. The ocular movements are full. Dry Cleaning Manager strength is equal. Motor tone is normal. No tremors or asterixis. The patient has a supple neck. She moves all extremities. No recurrent seizure activity is present. IMPRESSION: Onset of headache with urinary tract infection. White blood count showing leukopenia, but also quite seriously neutropenia with a white count around 1000, which is a serious issue. In addition, she has thrombocytopenia with a platelet count of 62,000. She may have been compromised based on a bone marrow failure issue or this may be simply an issue related to this infection. We would recommend treating him with anticonvulsants. I would plan to review her further history from other family members. The granddaughter at present has only a limited understanding of her prior history. I did review over her CT scan of the head. Sinuses are unremarkable. The brain has a relatively normal appearance for her stated age and there is only a very slight degree of atrophy present somewhat more so than would be expected, but certainly this does not look pathological and there is no evidence of any focal stroke or other focal lesions. There is a slight calcification in the globus pallidus but this is expected at her age. I do not see any other abnormalities that are worth commenting on. JOB# [id number] CHRISTA/LISA
[2017-03-26 05:23] LABS: Hematocrit 29.1 % (30.3-42.9); Hemoglobin 9.9 gm/dl (10.1-14.3); Mean Corpuscular HGB Conc 34 % (30-34); Mean Corpuscular Hemoglobin 36 pg (28-32); Mean Corpuscular Volume 107 fl (79-97); Red Blood Count 2.72 M/mm3 (3.65-5.03); Red Cell Distribution Width 14.8 % (13.2-15.2)
[2017-03-26] MEDS: D5/0.45NS 1,000 ML IV SCH ×2 (05:25→10:01)
[2017-03-26 05:27] LABS: White Blood Count 1.6 K/mm3 (4.5-11.0)
[2017-03-26 05:28] LABS: Platelet Count 49 K/mm3 (140-440)
[2017-03-26 05:54] LABS: Alanine Aminotransferase 12 units/L (7-56); Albumin 3.2 g/dL (3.9-5); Albumin/Globulin Ratio 1.3 %; Alkaline Phosphatase 52 units/L (35-129); Anion Gap 15 mmol/L; BUN/Creatinine Ratio 13; Blood Urea Nitrogen 9 mg/dL (7-17); Calcium 7.6 mg/dL (8.4-10.2); Carbon Dioxide 24 mmol/L (22-30); Chloride 106.4 mmol/L (98-107); Glucose 102 mg/dL (65-100); Potassium 3.5 mmol/L (3.6-5.0); Sodium 142 mmol/L (137-145); Total Protein 5.6 g/dL (6.3-8.2)
[2017-03-26 05:59] LABS: Bilirubin,Direct < 0.2 mg/dL (0-0.2)
[2017-03-26 06:30] LABS: Anisocytosis 1+; Basophils % (Manual) 0 % (0.0-1.8); Blastocytes % (Manual) 0 %; Diff Status Complete; Ovalocytes Few; Platelet Estimate Appears Decreased; Tear Drop Cells Few
[2017-03-26] MEDS: ROBITUSSIN PO PRN (10:01)
--- NOTE | 2017-03-26 11:03 | Progress Note ---
Assessment and Plan Syncope, Generallized weakness, fatigue Witnessed Seizure Headache Pancytopenia Recommend: Neurology and Hematology evaluation Check Echocardiogram Subjective Date of service: 03/26/17 Interval history: No acute events. No further seizures. Objective Vital Signs Temp Pulse Resp Resp BP Pulse Ox 03/26/17 08:07 93 03/26/17 07:56 20 03/26/17 03:46 98.5 F 60 18 103/47 95 03/26/17 00:13 98.4 F 67 20 109/49 96 03/25/17 23:24 20 03/25/17 23:00 20 03/25/17 22:15 20 03/25/17 21:13 64 03/25/17 19:43 98.3 F 67 20 105/46 99 03/25/17 16:01 98.3 F 55 L 18 92/36 94 - Physical Examination General: Appears Well HEENT: Positive: PERRL Neck: Positive: neck supple Cardiac: Positive: Reg Rate and Rhythm. Negative: Systolic Murmur Lungs: Positive: clear to auscultation, Normal Breath Sounds Abdomen: Positive: Soft, Active Bowel Sounds Extremities: Absent: edema - Labs and Meds Cardiac Enzymes 03/26/17 Range/Units 04:21 AST 27 (5-40) units/L CBC 03/26/17 Range/Units 04:21 WBC 1.6 L* (4.5-11.0) K/mm3 RBC 2.72 L (3.65-5.03) M/mm3 Hgb 9.9 L (10.1-14.3) gm/dl Hct 29.1 L (30.3-42.9) % Plt Count 49 L (140-440) K/mm3 Comprehensive Metabolic Panel 03/26/17 Range/Units 04:21 Sodium 142 (137-145) mmol/L Potassium 3.5 L (3.6-5.0) mmol/L Chloride 106.4 (98-107) mmol/L Carbon Dioxide 24 (22-30) mmol/L BUN 9 (7-17) mg/dL Creatinine 0.7 (0.7-1.2) mg/dL Glucose 102 H (65-100) mg/dL Calcium 7.6 L (8.4-10.2) mg/dL Direct Bilirubin < 0.2 (0-0.2) mg/dL Indirect Bilirubin 0.0 mg/dL AST 27 (5-40) units/L ALT 12 (7-56) units/L Alkaline Phosphatase 52 (35-129) units/L Total Protein 5.6 L D (6.3-8.2) g/dL Albumin 3.2 L (3.9-5) g/dL
--- NOTE | 2017-03-26 13:15 | Hem/Onc Consultation ---
History of Present Illness - Reason for Consult Consult date: 03/26/17 - History of Present Illness Full consult dictated. We will check hepatitis profile. We will check B12 and folate levels. We will follow CBC carefully. May need to give empiric anti-biotics if leucopenia persists. If starts bleeding, may need platelet transfusion but currently we will follow. May need bone marrow biopsy if above mentioned tests unremarkable Past History Past Medical History: No medical history, other (reviewed) Past Surgical History: No surgical history, Other (reviewed) Social history: single, lives with family. denies: smoking, alcohol abuse, prescription drug abuse Family history: no significant family history (reviewed) Medications and Allergies Allergies Allergy/AdvReac Type Severity Reaction Status Date / Time No Known Allergies Allergy Unverified 12/01/14 14:40 Home Medications Medication Instructions Recorded Confirmed Last Taken Type No Known Home Medications [No 03/24/17 03/24/17 Unknown History Reported Home Medications] Active Meds: Active Medications Acetaminophen (Tylenol) 650 mg PO Q4H PRN PRN Reason: Pain MILD(1-3)/Fever >100.5/HASSAN Last Admin: 03/25/17 23:24 Dose: 650 mg Albuterol (Proventil) 2.5 mg IH Q4HRT PRN PRN Reason: Shortness Of Breath Guaifenesin (Robitussin) 200 mg PO Q4H PRN PRN Reason: Cough Last Admin: 03/26/17 10:01 Dose: 200 mg Dextrose/Sodium Chloride (D5/0.45ns) 1,000 mls @ 75 mls/hr IV DIRECT MARK Last Admin: 03/26/17 10:01 Dose: 75 mls/hr Morphine Sulfate (Morphine) 2 mg IV Q4H PRN PRN Reason: Pain, Moderate (4-6) Nitroglycerin (Nitrostat) 0.4 mg SL Q5M PRN PRN Reason: Chest Pain Ondansetron HCl (Zofran) 4 mg IV Q8H PRN PRN Reason: N/V unrelieved by Reglan Sodium Chloride (Sodium Chloride Flush Syringe 10 Ml) 10 ml IV PRN PRN PRN Reason: LINE FLUSH Exam - Constitutional Vitals: Last Vital Signs Temp 98.1 F 03/26/17 11:47 Pulse 61 03/26/17 11:48 Resp 16 03/26/17 11:47 BP 125/50 03/26/17 11:47 Pulse Ox 95 03/26/17 11:48 Results - Labs lab Results: Laboratory Results - last 24 hr 03/26/17 03/26/17 04:21 04:21 WBC 1.6 L* RBC 2.72 L Hgb 9.9 L Hct 29.1 L MCV 107 H MCH 36 H MCHC 34 RDW 14.8 Plt Count 49 L [place] % (Auto) [employer] Att[employer] Add Manual Diff Complete Total Counted 100 Seg Neutrophils % [employer] Att[employer] Seg Neuts % (Manual) 42.0 Band Neutrophils % 12.0 Lymphocytes % (Manual) 37.0 H Reactive Lymphs % (Man) 3.0 Monocytes % (Manual) 5.0 Eosinophils % (Manual) 1.0 Basophils % (Manual) 0 Metamyelocytes % 0 Myelocytes % 0 Promyelocytes % 0 Blast Cells % 0 Nucleated RBC % Not Reportable Seg Neutrophils # Man 0.7 L Band Neutrophils # 0.2 Lymphocytes # (Manual) 0.6 L Abs React Lymphs (Man) 0.0 Monocytes # (Manual) 0.1 Eosinophils # (Manual) 0.0 Basophils # (Manual) 0.0 Metamyelocytes # 0.0 Myelocytes # 0.0 Promyelocytes # 0.0 Blast Cells # 0.0 WBC Morphology Not Reportable Hypersegmented Neuts Not Reportable Hyposegmented Neuts Not Reportable Hypogranular Neuts Not Reportable Smudge Cells Not Reportable Toxic Granulation Not Reportable Toxic Vacuolation Not Reportable Dohle Bodies Not Reportable Pelger-Huet Anomaly Not Reportable Gurpreet Rods Not Reportable Platelet Estimate Appears decreased Clumped Platelets Not Reportable Plt Clumps, EDTA Not Reportable Large Platelets Not Reportable Giant Platelets Not Reportable Platelet Satelliting Not Reportable Plt Morphology Comment Not Reportable RBC Morphology Not Reportable Dimorphic RBCs Not Reportable Polychromasia Not Reportable Hypochromasia Not Reportable Poikilocytosis Not Reportable Anisocytosis 1+ Microcytosis Not Reportable Macrocytosis Not Reportable Spherocytes Not Reportable Pappenheimer Bodies Not Reportable Sickle Cells Not Reportable Target Cells Not Reportable Tear Drop Cells Few Ovalocytes Few Helmet Cells Not Reportable [place] Bodies Not Reportable [place] Rings Not Reportable [place] Cells Not Reportable Bite Cells Not Reportable Crenated Cell Not Reportable Elliptocytes Not Reportable Acanthocytes (Spur) Not Reportable Rouleaux Not Reportable Hemoglobin C Crystals Not Reportable Schistocytes Not Reportable Malaria parasites Not Reportable Moses Bodies Not Reportable Hem Pathologist Commnt No Sodium 142 Potassium 3.5 L Chloride 106.4 Carbon Dioxide 24 Anion Gap 15 BUN 9 Creatinine 0.7 Estimated GFR > 60 BUN/Creatinine Ratio 13 Glucose 102 H Calcium 7.6 L Total Bilirubin 0.20 Direct Bilirubin < 0.2 Indirect Bilirubin 0.0 AST 27 ALT 12 Alkaline Phosphatase 52 Total Protein 5.6 L D Albumin 3.2 L Albumin/Globulin Ratio 1.3
--- NOTE | 2017-03-26 14:50 | Progress Note ---
Assessment and Plan Assessment and Plan Assessment and plan: --Witnessed seizure; probably new onset Seizure precautions, antiepileptic medications, neurology consultation, supportive care, EEG as needed --Acute coronary syndrome; unlikely, serial cardiac enzymes negative, EKG no acute ST changes, closely monitor --Acute renal failure; vasomotor nephropathy, resolved Gentle hydration, closely monitor renal function, avoid nephrotoxic medications --Hyponatremia; replacement therapy, closely monitor sodium levels --Neutropenia; unknown etiology, try to get a complete history from the family --Thrombocytopenia; unknown etiology, obtain medical history from the family, consult hematology as needed --Elevated D dimers; negative PE --DVT prophylaxis; no pharmacologic anticoagulation in view of thrombocytopenia Use SCDs --Full code Closely monitor the patient and adjust management as needed Subjective Date of service: 03/26/17 Objective - Constitutional Vitals: Vital Signs - 12hr 03/26/17 03/26/17 03/26/17 03:46 07:53 07:56 Temperature 98.5 F 97.7 F Pulse Rate 60 62 Respiratory 18 16 Rate Respiratory 20 Rate [Back] Blood Pressure 103/47 97/46 O2 Sat by Pulse 95 96 Oximetry 03/26/17 03/26/17 03/26/17 08:07 10:00 11:47 Temperature 98.1 F Pulse Rate 56 L 60 Respiratory 16 Rate Respiratory Rate [Back] Blood Pressure 125/50 O2 Sat by Pulse 93 95 Oximetry 03/26/17 11:48 Temperature Pulse Rate 61 Respiratory Rate Respiratory Rate [Back] Blood Pressure O2 Sat by Pulse 95 Oximetry General appearance: Present: no acute distress, well-nourished - EENT Eyes: PERRL, EOM intact ENT: hearing intact, clear oral mucosa Ears: bilateral: normal - Neck Neck: supple, normal ROM - Respiratory Respiratory effort: normal Respiratory: bilateral: CTA - Breasts Breasts: normal - Cardiovascular Rhythm: regular Heart Sounds: Present: S1 & S2. Absent: gallop, rub Extremities: pulses intact, No edema, normal color, Full ROM - Gastrointestinal General gastrointestinal: Present: soft, non-tender, non-distended, normal bowel sounds - Genitourinary Female genitourinary: normal - Integumentary Integumentary: clear, warm, dry - Musculoskeletal Musculoskeletal: 1, strength equal bilaterally - Neurologic Neurologic: moves all extremities - Psychiatric Psychiatric: memory intact, appropriate mood/affect, intact judgment & insight - Labs CBC & Chem 7: 03/26/17 04:21 03/26/17 04:21 Labs: Abnormal lab results 03/26/17 03/26/17 Range/Units 04:21 04:21 WBC 1.6 L* (4.5-11.0) K/mm3 RBC 2.72 L (3.65-5.03) M/mm3 Hgb 9.9 L (10.1-14.3) gm/dl Hct 29.1 L (30.3-42.9) % MCV 107 H (79-97) fl MCH 36 H (28-32) pg Plt Count 49 L (140-440) K/mm3 Lymphocytes % (Manual) 37.0 H (13.4-35.0) % Seg Neutrophils # Man 0.7 L (1.8-7.7) K/mm3 Lymphocytes # (Manual) 0.6 L (1.2-5.4) K/mm3 Potassium 3.5 L (3.6-5.0) mmol/L Glucose 102 H (65-100) mg/dL Calcium 7.6 L (8.4-10.2) mg/dL Total Protein 5.6 L D (6.3-8.2) g/dL Albumin 3.2 L (3.9-5) g/dL
[2017-03-26 15:47] LABS: Reticulocyte % 0.51 % (0.78-2.58)
[2017-03-26 17:33] VITALS: BP 107/45
--- NOTE | 2017-03-26 21:58 | Consultation ---
REFERRING PHYSICIAN: Dr. Arteaga. REASON FOR CONSULTATION: Leukopenia and thrombocytopenia. HISTORY OF PRESENT ILLNESS: The patient is a 77-year-old female who has, according to the granddaughter, not been in the hospital for a long time. She does not have a primary care physician. She on Monday when she went to work, she felt bad and she was brought to the Emergency Room. She was found to be pancytopenic white count of 2.0, hemoglobin 11.8, platelets of 62,000. She did undergo multitude of testing, which showed that she had a creatinine of 1.3 with BUN of 32. Liver function tests were within normal limits. Her ammonia level was also within normal limits. She did undergo CT scan of the head, which was unremarkable. She also underwent a CT angiogram, which did not show any pulmonary embolus. Because of persistent leukopenia and thrombocytopenia, Hematology/Oncology consult was called. The patient also underwent blood cultures, which were negative. According to the doctor, there is no previous history of malignancy or any previous history of leukopenia. Denies any history of hepatitis. [place]. She does not have any physician and does not take any medications on a regular basis according to the granddaughter. The patient states she has lost some weight, but she attributes that to advanced age. She does complain of headache and cough. PAST MEDICAL HISTORY: Unremarkable. SOCIAL HISTORY: Does not smoke or drink. FAMILY HISTORY: Unremarkable. PHYSICAL EXAMINATION: GENERAL: The patient is awake. She is sleepy. HEENT: Reveals head to be atraumatic. NECK: Supple. CHEST: Clear bilaterally. CARDIOVASCULAR: Regular rate and rhythm. ABDOMEN: Soft. There is tenderness in the left rib area, mild. EXTREMITIES: No clubbing, cyanosis, or edema. LABORATORY DATA: As mentioned in history of present illness. ASSESSMENT: Pancytopenia, although I do not know what her baseline is, rule out hepatitis, rule out other causes of pancytopenia including B12 and folate deficiency. The is anemic and we will check her iron studies too. The patient may need empiric antibiotics if the thrombocytopenia persists. We will follow that. If above-mentioned tests do not show any abnormality, may need to get a bone marrow biopsy. We will follow. JOB# [id number] URSULA/LISA
== END 2017-03-26 20:21 | disposition left against medical advice (07) | DRG 100 ==
LOC: ED 10:09 → 4A 20:31
PROVIDERS: ADMIT Internal Medicine; ATTEND Internal Medicine
PROC: 3E0234Z Introduction of Serum, Toxoid and Vaccine into Muscle, Percutaneous Approach (ICD-10-PCS; principal; 2017-03-25)
DX: R56.9 Unspecified convulsions (principal); N17.0 Acute kidney failure with tubular necrosis; I24.9 Acute ischemic heart disease, unspecified; E87.1 Hypo-osmolality and hyponatremia; D61.818 Other pancytopenia; Z23 Encounter for immunization; R00.1 Bradycardia, unspecified
CPT/HCPCS: 36415; 70450; 71010; 71275; 80048; 80053; 80061; 80074; 80307; 80320; 81001; 82140; 82550; 82553; 82607; 82728; 82747; 82962; 83550; 83735; 83880; 84443; 84484; 85007; 85025; 85045; 85379; 85610; 85730; 86706; 86803; 86850; 86900; 86901; 87040; 87086; 90686; 93005; 93010; 93306; 94760; 96365; 96375; G0480; J0696; J1953; J2060; J7030; Q9967